=== PATIENT | female | born 1990 | race Two or more races ===

== ENCOUNTER 2020-04-09 20:20 | Emergency (ER) | payer MEDICAID ==
[~2020-04-09] VITALS: Ht 170.2 cm; Wt 62.1 kg
--- NOTE | 2020-04-09 20:30 | NUR ---
ED Nurse Note: PT BROUGHT IN BY [facility]AR[facility] DELUCA [id number] FROM HOME C/O VAGINAL BLEED X 3DAYS. PT IS CURRENTLY 8 WEEKS . PT STATES LAST OB CHECK UP WAS ON 04/03 AT [facility]. PATIENT IS AAOX4, VSS, AMBULATORY STEADY GAIT, AND NO ACUTE DISTRESS. PT IS COOPERATIVE, CLEAN, AND WITH HER BOYFRIEND. PT STATES PAIN IS 0/10 AND REPORTS TO BE A FORMER IV DRUG USER.
[2020-04-09 20:40] VITALS: BP 123/84
--- NOTE | 2020-04-09 20:48 | NUR ---
ED Nurse Note: Bloodwork sent to lab.
--- NOTE | 2020-04-09 20:55 | NUR ---
ED Nurse Note: crime scene technician at bedside.
[2020-04-09 21:14] LABS: ANION GAP 10 mmol/L (5-15); BLOOD UREA NITROGEN 7 mg/dL (7-18); CALCIUM 8.9 MG/DL (8.5-10.1); CARBON DIOXIDE 25 MMOL/L (21-32); CHLORIDE 104 MMOL/L (98-107); POTASSIUM 3.8 MMOL/L (3.5-5.1); SODIUM 139 MMOL/L (136-145)
--- NOTE | 2020-04-09 21:14 | Emergency Room Report ---
History of Present Illness General Chief Complaint: Complications Source: Patient Present Illness HPI This patient is 8 weeks . She is (2 SIDS) She states that she has had vaginal bleeding for the past 3 days and pelvic cramping. She states that the bleeding started after sexual intercourse with her . She denies fever or chills. She denies nausea or vomiting. She denies cough or congestion. She denies dysuria hematuria. She has no other complaints. Allergies: Coded Allergies: No Known Allergies (Unverified , 04/09/20) COVID-19 Screening Contact w/high risk pt: No Experienced COVID-19 symptoms?: No COVID-19 Testing performed ARMED SEC[employer]ITY GUARD: No Patient History Past Medical History: none, see triage record Social History: Denies: smoking, alcohol use, drug use Now: Yes - 8 WEEKS : 4 Para: 3 Reviewed Nursing Documentation: PMH: Agreed; PSxH: Agreed Nursing Documentation-PMH Past Medical History: No Stated History Review of Systems All Other Systems: negative except mentioned in HPI Physical Exam Vital Signs Date Time Temp Pulse Resp B/P (MAP) Pulse Ox O2 Delivery O2 Flow Rate FiO2 04/09/20 20:21 99.0 85 18 126/91 (103) 98 Room Air Sp02 EP Interpretation: reviewed, normal General Appearance: no apparent distress, alert, GCS 15, non-toxic Head: normocephalic, atraumatic Eyes: bilateral eye normal inspection, bilateral eye PERRL ENT: hearing grossly normal, normal pharynx, no angioedema, normal voice Neck: normal inspection, full range of motion Respiratory: chest non-tender, lungs clear, normal breath sounds, no respiratory distress, no retraction, no accessory muscle use, speaking full sentences Cardiovascular #1: regular rate, rhythm, no edema Gastrointestinal: soft, non-distended, no guarding, no rebound, tenderness - Mildly ttp over supra-pubic region Rectal: deferred Musculoskeletal: back normal, normal range of motion, gait/station normal, non- tender Neurologic: alert, motor strength/tone normal, oriented x3, sensory intact, responsive, speech normal Psychiatric: judgement/insight normal, memory normal, mood/affect normal, no suicidal/homicidal ideation Skin: no rash, normal color Medical Decision Making Diagnostic Impression: Primary Impression: First trimester bleeding Additional Impressions: demise Miscarriage ER Course This patient has a presentation concerning for demise and the beginning of the miscarriage. The patient's ultrasound showed a gestational sac that is consistent with 9 weeks. However, there was no yolk sac or heart tones identified. Further, the patient is having vaginal bleeding. The patient's hCG is also lower than expected for dates. There is a slim possibility that this is an early but I suspect that this is a failed with getting of a miscarriage. The patient does have a primary OB. She is instructed to follow-up with her primary OB tomorrow. She is also given return precautions. She was given the results of her lab tests so that she can bring them to her OB. She is given very close return precautions and follow-up instructions. Laboratory Tests Test 04/09/20 20:50 White Blood Count 7.8 K/UL (4.8-10.8) Red Blood Count 4.42 M/UL (4.20-5.40) Hemoglobin 13.3 G/DL (12.0-16.0) Hematocrit 40.6 % (37.0-47.0) Mean Corpuscular Volume 92 FL (80-99) Mean Corpuscular Hemoglobin 30.2 PG (27.0-31.0) Mean Corpuscular Hemoglobin Concent 32.9 G/DL (32.0-36.0) Red Cell Distribution Width 11.7 % (11.6-14.8) Platelet Count 124 K/UL (150-450) L Mean Platelet Volume 7.8 FL (6.5-10.1) Neutrophils (%) (Auto) 61.1 % (45.0-75.0) Lymphocytes (%) (Auto) 29.5 % (20.0-45.0) Monocytes (%) (Auto) 6.3 % (1.0-10.0) Eosinophils (%) (Auto) 1.7 % (0.0-3.0) Basophils (%) (Auto) 1.4 % (0.0-2.0) Sodium Level 139 MMOL/L (136-145) Potassium Level 3.8 MMOL/L (3.5-5.1) Chloride Level 104 MMOL/L (98-107) Carbon Dioxide Level 25 MMOL/L (21-32) Anion Gap 10 mmol/L (5-15) Blood Urea Nitrogen 7 mg/dL (7-18) Creatinine 1.0 MG/DL (0.55-1.30) Estimated Glomerular Filtration Rate > 60 mL/min (>60) Glucose Level 92 MG/DL (74-106) Calcium Level 8.9 MG/DL (8.5-10.1) Total Bilirubin 0.3 MG/DL (0.2-1.0) Aspartate Amino Transferase (AST) 21 U/L (15-37) Alanine Aminotransferase (ALT) 11 U/L (12-78) L Alkaline Phosphatase 62 U/L (46-116) Total Protein 7.6 G/DL (6.4-8.2) Albumin 4.1 G/DL (3.4-5.0) Globulin 3.5 g/dL Albumin/Globulin Ratio 1.2 (1.0-2.7) Human Chorionic Gonadotropin, Quant 7058 mIU/mL (1-6) H CT/MRI/US Diagnostic Results CT/MRI/US Diagnostic Results : Imaging Test Ordered: US OB Impression Gestational sac at 9weeks. No yolk sac or FHT Last Vital Signs Date Time Temp Pulse Resp B/P (MAP) Pulse Ox O2 Delivery O2 Flow Rate FiO2 04/09/20 20:21 99.0 85 18 126/91 (103) 98 Room Air Disposition: HOME, SELF-CARE Condition: Stable Referrals: NON PHYSICIAN (PCP) Nadya Meehan DO Apr 09, 2020 21:14
--- NOTE | 2020-04-09 21:18 | NUR ---
ED Nurse Note: TYPE AND SCREEN SENT TO LAB.
[2020-04-09 21:28] LABS: ALANINE AMINOTRANSFERASE 11 U/L (12-78); ALBUMIN 4.1 G/DL (3.4-5.0); ALBUMIN/GLOBULIN RATIO 1.2 (1.0-2.7); ALKALINE PHOSPHATASE 62 U/L (46-116); ASPARTATE AMINO TRANSFERASE 21 U/L (15-37); BILIRUBIN,TOTAL 0.3 MG/DL (0.2-1.0)
[2020-04-09 21:30] LABS: BASOPHILS % (AUTO) 1.4 % (0.0-2.0); EOSINOPHILS % (AUTO) 1.7 % (0.0-3.0); HEMATOCRIT 40.6 % (37.0-47.0); HEMOGLOBIN 13.3 G/DL (12.0-16.0); LYMPHOCYTES % (AUTO) 29.5 % (20.0-45.0); MEAN CORPUSCULAR VOLUME 92 FL (80-99); MONOCYTES % (AUTO) 6.3 % (1.0-10.0); NEUTROPHILS % (AUTO) 61.1 % (45.0-75.0); PLATELET COUNT 124 K/UL (150-450); RED BLOOD COUNT 4.42 M/UL (4.20-5.40); RED CELL DISTRIBUTION WIDTH 11.7 % (11.6-14.8); WHITE BLOOD COUNT 7.8 K/UL (4.8-10.8)
--- NOTE | 2020-04-09 21:38 | Diagnostic Imaging Report ---
EXAM: US First Trimester , Transabdominal CLINICAL HISTORY: BLD TECHNIQUE: Real-time transabdominal obstetrical ultrasound of the maternal pelvis and a first trimester with image documentation. COMPARISON: No relevant prior studies available. FINDINGS: Gestation: Single IUP with an estimated gestational age of 9 weeks and 0 days. No heart tones. Findings are concerning for failed . Placenta/amniotic fluid: Cannot be adequately evaluated due to the early gestational age. Uterus/cervix: Unremarkable. No myometrial mass. Ovaries: None visualized secondary bowel gas. Free fluid: Small subchronic hemorrhage. No free fluid. IMPRESSION: 1. Single IUP with an estimated gestational age of 9 weeks and 0 days. No heart tones. Findings are concerning for failed . 2. Small subchronic hemorrhage.
--- NOTE | 2020-04-09 21:42 | NUR ---
ED Nurse Note: PATIENT STATED THAT SHE WAS ACTIVLY BLEEDING. FEMININE PAD ABLE TO CONTAIN BLEEDING AT THIS TIME. MD INFORMED. WILL CONTINUE TO MONITOR PT.
[2020-04-09 21:52] VITALS: BP 120/89
[2020-04-09] MEDS ORDERED: IBUPROFEN800 MG ORAL (21:54)
[2020-04-09] MEDS ORDERED: NORCO 5-325 TA1 EAC1 ORAL (21:54)
[2020-04-09 22:00] VITALS: BP 120/89
--- NOTE | 2020-04-09 22:02 | NUR ---
ER DISCHARGE NOTE: Patient is cleared to be discharged per ERMD, pt is aox4, on room air, with stable vital signs. pt was given dc and prescription instructions, pt was able to verbalize understanding, pt id band and iv site removed without complications. pt is able to ambulate with steady gait. pt took all belongings. Pt states pain ia 0/10 and left ED in private car.
== END 2020-04-09 22:00 | disposition home or self-care (01) ==
LOC: EDBD 20:20 → EMR 20:40
DX: O03.9 Complete or unspecified spontaneous abortion without complication (principal); Z3A.09 9 weeks gestation of pregnancy
CPT/HCPCS: 36415; 76801; 80053; 84702; 85025; 86850; 86900; 86901; 96360; J7030; Z7502; 76817; 99284